=== PATIENT | female | born 2000 | race Caucasian/White ===

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

== ENCOUNTER → 2022-01-12 01:43 | Outpatient (CLI) | payer OTHER, SELFPAY ==
--- NOTE | 2022-01-12 07:45 | DI.RAD_ITS ---
Exam(s) XR SHOULDER LT COMPLETE 2+V EXAM: XR SHOULDER LT COMPLETE 2+V CLINICAL HISTORY: heard pop, pain x 4 weeks,M25.512. TECHNIQUE: 2D digital imaging was performed. Three views. COMPARISON: CR RIGHT SHOULDER COMPLETE from 12/15/2013 FINDINGS: BONES: No acute fracture is present. No bony destructive lesion is seen. JOINTS: No dislocation present. SOFT TISSUE: Normal. IMPRESSION: Unremarkable radiographs of the left shoulder. DATA REPOSITORY: RADIATION DOSE DELIVERED:
== END ==
PROVIDERS: PCP Nurse Practitioner Family; Visit Provider Pediatrics
DX: M25.512 Pain in left shoulder (principal)
CPT/HCPCS: 73030

== ENCOUNTER 2022-01-26 12:17 | Outpatient (REF) | payer OTHER, SELFPAY ==
[2022-01-27 13:59] LABS: Chlamydia Result Negative (Negative); GC Result Negative (Negative)
== END 2022-01-26 12:18 | disposition home or self-care (01) ==
LOC: LBN 12:17
PROVIDERS: PCP Nurse Practitioner Family; Visit Provider Nurse Practitioner Family
DX: R10.9 Unspecified abdominal pain (principal)
CPT/HCPCS: 87491; 87591; 87086; 87480; 87510; 87660

== ENCOUNTER 2022-02-02 15:11 | Outpatient (REF) | payer OTHER, SELFPAY | END 2022-02-02 15:12 | disposition home or self-care (01) | LOC: LBN 15:11 | PROVIDERS: PCP Nurse Practitioner Family; Visit Provider Nurse Practitioner Women's Health | DX: N76.0 Acute vaginitis (principal) | CPT/HCPCS: 87480; 87510; 87660 ==

== ENCOUNTER 2022-04-17 19:30 | Outpatient (CLI) | payer OTHER, SELFPAY ==
--- NOTE | 2022-04-17 19:55 | DI.RAD_ITS ---
Exam(s) XR TIB/FIB LT EXAM: XR TIB/FIB LT CLINICAL HISTORY: left lower leg pain. TECHNIQUE: 2D digital imaging was performed. Two views. COMPARISON: CR LEFT ANKLE COMPLETE from 09/13/2017 CR XR SHOULDER LT COMPLETE 2+V from 01/12/2022 FINDINGS: BONES: No acute fracture is present. No bony destructive lesion is seen. Visualized portion of knee a nd ankle joints are unremarkable. SOFT TISSUE: Normal. IMPRESSION: Unremarkable radiographs of the left tibia and fibula. DATA REPOSITORY: RADIATION DOSE DELIVERED:
--- NOTE | 2022-04-17 20:12 | DI.VRAD_ITS ---
PROCEDURE INFORMATION: Exam: XR Left Tibia and Fibula Exam date and time: 04/17/2022 7:55 PM Age: 21 years old Clinical indication: Pain; Lower leg; Left TECHNIQUE: Imaging protocol: Radiologic exam of the Left tibia and fibula. Views: 2 views. COMPARISON: CR XR FOOT LT COMPLETE 11/06/2021 6:39 PM FINDINGS: Bones/joints: Bone mineralization is age-appropriate. There is no evidence of fracture. No evidence of dislocation. The joint spaces are adequately preserved; no significant degenerative narrowing and no bony erosion seen. Soft tissues: No radiopaque foreign body present. There is soft tissue swelling present at the lateral knee joint. IMPRESSION: 1. No acute osseous abnormality. 2. There is soft tissue swelling present at the lateral knee joint. Dictated and Authenticated by: Mathew Casper MD. Ordering:MILDRED Francois MD
== END 2022-04-17 19:50 ==
PROVIDERS: PCP Nurse Practitioner Family; Visit Provider Physician Assistant Medical
DX: M79.662 Pain in left lower leg (principal)
CPT/HCPCS: 73590

== ENCOUNTER 2022-05-21 12:28 | Outpatient (CLI) | payer OTHER, SELFPAY ==
--- NOTE | 2022-05-21 09:15 | DI.RAD_ITS ---
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 Eight images were obta ined. AP, lateral and oblique views were obtained. COMPARISON: CR,XR XR TIB/FIB LT from 04/17/2022 FINDINGS: BONES: No acute fracture is present. No bony destructive lesion is seen. No periosteal reaction is se en to suggest a healing fracture. JOINTS:The ankle and knee are unremarkable. SOFT TISSUE: Normal. IMPRESSION: 1. No evidence of an acute or healing fracture or dislocation. 2. If there is concern for an occult fracture or stress fracture, an MRI may be obtained for further evaluation. DATA REPOSITORY: RADIATION DOSE DELIVERED:
== END 2022-05-21 12:48 ==
LOC: DI 12:30
PROVIDERS: PCP Nurse Practitioner Family
DX: M79.605 Pain in left leg (principal); M79.89 Other specified soft tissue disorders; M25.572 Pain in left ankle and joints of left foot; M25.562 Pain in left knee
CPT/HCPCS: 73562; 73590; 73610

== ENCOUNTER 2022-08-24 03:06 | Outpatient (CLI) | payer OTHER, SELFPAY ==
[2022-08-24 15:02] LABS: HCG Quant, Pregnancy < 1 mIU/mL (1-3)
== END 2022-08-24 03:07 | disposition home or self-care (01) ==
LOC: LBO 03:06
PROVIDERS: PCP Nurse Practitioner Family; Visit Provider Nurse Practitioner Women's Health
DX: N92.6 Irregular menstruation, unspecified (principal)
CPT/HCPCS: 36415; 84702

== ENCOUNTER 2022-11-19 19:08 | Emergency (ER) | payer OTHER, SELFPAY ==
[2022-11-19 19:12] VITALS: BP 125/88; PULSE 109; RESP 20; TEMP 36.7; O2SAT 100
--- NOTE | 2022-11-19 20:30 | DI.CT_ITS ---
Exam(s) CT LUMBAR SPINE WO EXAM: CT LUMBAR SPINE WO CLINICAL HISTORY: tingling in legs after heavy lifting. TECHNIQUE: Imaging Protocol: Axial computed tomography images with coronal and sagittal reformatted images were created and reviewed COMPARISON: No exams were available for comparison FINDINGS: Bones: The last intervertebral disc space is designated the L5/S1 level for the numbering purpose of this examination. The vertebral body heights are well maintained. Alignment is satisfactory. No fracture is seen. T12-L1: No disc herniations or bulges are present. L1-2: No disc herniations or bulges are present. L2-3: No disc herniations or bulges are present. L3-4: No disc herniations or bulges are present. L4-5: There is mild central disc bulging.. No significant central canal stenosis or neural foramina l narrowing. L5-S1: Minimal central disc bulging. The visualized SI joints and sacrum are will maintained. Soft Tissues: The paraspinal soft tissues are unremarkable. IMPRESSION: Mild disc bulging at L4-5. Minimal disc bulging at L 5 S1. No significant central canal stenosis or neural foraminal encroachment. RADIATION DOSE DELIVERED: 390.55mGy.cm Total DLP DATA REPOSITORY: All CT scans at this facility are submitted to the National Radiology Data Registry (NRDR) Dose Index Registry (DIR) with the [employer] (A[employer]). RADIATION OPTIMIZATION: All CT scans at this facility use at least one of these dose optimization te chniques: automated exposure control; mA and/or kV adjustment per patient size (includes targeted exa ms where dose is matched to clinical indication); or iterative reconstruction.
[2022-11-19] MEDS: predniSONE 20 MG TAB 60 MG PO (20:53)
--- NOTE | 2022-11-19 22:06 | DI.VRAD_ITS ---
PROCEDURE INFORMATION: Exam: CT Lumbar Spine Without Contrast Exam date and time: 11/19/2022 9:20 PM Age: 22 years old Clinical indication: Low back pain; Patient HX: Tingling in legs after heavy lifting TECHNIQUE: Imaging protocol: Computed tomography of the lumbar spine without contrast. COMPARISON: CR XR HIP RT COMPLETE AP PELVIS 11/01/2020 5:32 PM FINDINGS: Bones/joints: Alignment is normal. Small central protrusion at L4-L5 with separate left lateral protrusion at this level mildly narrowing the left neural foramen. Small left paracentral protrusion L5-S1. No central canal stenosis. No fracture or bony destructive lesion. Soft tissues: Unremarkable. IMPRESSION: 1. Central and left lateral protrusion at L4-L5. Mild left-sided neural foraminal narrowing. 2. Small left paracentral protrusion at L5-S1. 3. No central canal stenosis. No fracture or bony destructive lesion. Dictated and Authenticated by: Brian Mixon MD. Ordering:RAJ Contreras MD
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
--- NOTE | 2022-11-20 00:14 | NUR.NOTE ---
Pt placed on care management referral list for set up with an Adult PCP, pt currently has a pediatric primary. Pt also needs a pediatric f/u after MRI.
[2022-11-20 00:15] VITALS: BP 113/67; PULSE 67; RESP 16; TEMP 36.7; O2SAT 100
== END 2022-11-20 00:26 | disposition home or self-care (01) ==
PROVIDERS: Emergency Provider Student in an Organized Health Care Education/Training Program; PCP Nurse Practitioner Family
DX: M54.50 Low back pain, unspecified (principal); M51.16 Intervertebral disc disorders with radiculopathy, lumbar region; R20.0 Anesthesia of skin; S39.012A Strain of muscle, fascia and tendon of lower back, initial encounter; X50.0XXA Overexertion from strenuous movement or load, initial encounter; Y92.39 Other specified sports and athletic area as the place of occurrence of the external cause
CPT/HCPCS: 81025; 99284; 72131; J7512

== ENCOUNTER → 2022-12-09 00:31 | Outpatient (CLI) | payer OTHER, SELFPAY ==
--- NOTE | 2022-12-09 13:35 | DI.MRI_ITS ---
Exam(s) MR LUMBAR SPINE WO EXAM: MR LUMBAR SPINE WO CLINICAL HISTORY: Herniated disc, neurolgical symptoms,PROTRUSION OF DISC,M51.26. TECHNIQUE: Multiplanar multisequence MRI of the Lumbar spine was performed. COMPARISON: CR XR KNEE LT 3V AP,LAT,DAVID from 05/21/2022 FINDINGS: Bones: The last intervertebral disc space is designated the L5/S1 level for the numbering purpose of this ex amination. The vertebral body heights are well maintained. Alignment: Unremarkable. The marrow signal characteristics are unremarkable. Cord: The conus tip ends at the T12 level. It is of normal size and signal intensity. T12-L1: No focal disc herniation is present. No central spinal canal stenosis.No neural foraminal st enosis. L1-2: No focal disc herniation is present. No central spinal canal stenosis.No neural foraminal sten osis. L2-3: No focal disc herniation is present. No central spinal canal stenosis.No neural foraminal marizol nosis. L3-4: No focal disc herniation is present. No central spinal canal stenosis.No neural foraminal marizol nosis. L4-5: There is a small central and slightly right-sided disc protrusion at L4-5. No definite impinge ment on nerve roots. No central spinal canal stenosis.No neural foraminal stenosis. L5-S1: No focal disc herniation is present. No central spinal canal stenosis.No neural foraminal st enosis. The visualized SI joints and sacrum are well maintained. Soft tissues: The paraspinal soft tissues are unremarkable. IMPRESSION: Small disc protrusion at L4-5 without definite nerve root impingement. Remaining levels are normal. DATA REPOSITORY:
== END ==
PROVIDERS: PCP Nurse Practitioner Family; Visit Provider Student in an Organized Health Care Education/Training Program
DX: M51.26 Other intervertebral disc displacement, lumbar region (principal)
CPT/HCPCS: 72148

== ENCOUNTER 2023-01-08 04:03 | Outpatient (CLI) | payer OTHER, SELFPAY ==
[2023-01-08 09:01] LABS: TSH (W/Ref FT4) 2.28 uIU/mL (0.36-3.74)
== END 2023-01-08 04:04 | disposition home or self-care (01) ==
LOC: LBO 04:03
PROVIDERS: PCP Nurse Practitioner Family; Visit Provider Obstetrics & Gynecology
DX: N91.5 Oligomenorrhea, unspecified (principal)
CPT/HCPCS: 36415; 84146; 84443

== ENCOUNTER 2023-09-03 18:10 | Outpatient (REF) | payer OTHER, SELFPAY ==
[2023-09-04 14:53] LABS: HSV 1 DNA Result Negative (Negative); HSV 2 DNA Result Negative (Negative)
== END 2023-09-03 18:11 | disposition home or self-care (01) ==
LOC: NCHCN 18:10
PROVIDERS: PCP Nurse Practitioner Family; Visit Provider Physician Assistant Medical
DX: K13.0 Diseases of lips (principal)
CPT/HCPCS: 87529

== ENCOUNTER 2024-02-14 10:58 | Outpatient (REF) | payer OTHER, SELFPAY ==
--- NOTE | 2024-02-14 10:50 | PAPFT_PTH ---
PATIENT: Marge Nieves LOC: [facility] U#:[id number] AGE/SX: 23/F ROOM: RE02/14/[address]: Senait Tenorio NP : 2000 BED: DIS: 02/14/2024 SPEC #: [id number] RECD: 02/14/24 13:16 STATUS: ANA REQ #: [id number] SHIKHA: 02/14/24 10:[address]: Coby GARCIA,Senait DEPT: COUNTS INCLUDE 234 BEDS AT THE [facility] Cytology RECD BY: Katie Watson ENTERED: 02/14/24 13:16 SP TYPE: PAPFT OTHR DR: Kristen Ervin Tissues: 1 - CX/ENDOCX FOR PAP SMEARS Procedures: PAP THIN PREP/[facility] Screening Comments: [id number]
== END 2024-02-14 10:59 | disposition home or self-care (01) ==
LOC: LBN 10:58
PROVIDERS: PCP Nurse Practitioner Family; Visit Provider Nurse Practitioner Women's Health
DX: Z30.42 Encounter for surveillance of injectable contraceptive (principal); Z12.4 Encounter for screening for malignant neoplasm of cervix; N77.1 Vaginitis, vulvitis and vulvovaginitis in diseases classified elsewhere
CPT/HCPCS: 88142

== ENCOUNTER 2024-08-07 14:51 | Outpatient (CLI) | payer OTHER, SELFPAY ==
--- NOTE | 2024-08-07 | DI.RAD_ITS ---
Exam(s) XR WRIST LT COMP NAVICULAR EXAM: XR WRIST LT COMP NAVICULAR CLINICAL HISTORY: PAIN LEFT WRIST M25.532. TECHNIQUE: 2D digital imaging was performed. COMPARISON: No exams were available for comparison FINDINGS: Four views No evidence of fracture or dislocation nor significant ulnar variance. Scaphoid and scapholunate dis tance normal. Bone density normal. No osseous lesions. No erosions. No radiopaque foreign bodies. No gas in the soft tissues. IMPRESSION: No significant osseous findings in wrist. DATA REPOSITORY: RADIATION DOSE DELIVERED:
== END 2024-08-07 15:11 ==
LOC: DI 14:55
PROVIDERS: PCP Nurse Practitioner Family; Visit Provider Nurse Practitioner Family
DX: M25.532 Pain in left wrist (principal)
CPT/HCPCS: 73110